=== PATIENT | male | born 1965 | race Caucasian/White ===

== ENCOUNTER 2020-03-29 08:18 | Emergency (ER) | payer OTHER ==
[2020-03-29 08:37] LABS: BASOPHIL 0.4 % (0-2); EOSINOPHIL 0.4 % (0-5); HCT 43.9 % (42.0-52.0); HGB 15.7 g/dl (13.2-18.0); LYMPHOCYTE 17.1 % (15-48); MCH 30.4 pg (25.0-31.0); MCHC 35.8 g/dL (32.0-36.0); MCV 84.9 fL (78.0-100.0); MONOCYTE 6.4 % (0-12); MPV 9.1 fL (6.0-9.5); NEUTROPHIL 75.3 % (41-80); NRBC 0; PLT 209 K/uL (150-400); RBC 5.17 M/uL (4.70-6.00); RDW 12.7 % (11.5-14.0); WBC 11.4 K/uL (4.0-10.5)
[2020-03-29 08:43] LABS: BILIRUBIN NEGATIVE (NEGATIVE); BLOOD 2+ Ery/uL (NEGATIVE); CLARITY CLEAR (CLEAR); COLOR YELLOW (YELLOW); GLUCOSE (U) NORMAL (NORMAL); LEUKOCYTES NEGATIVE Leu/uL (NEGATIVE); NITRITE NEGATIVE (NEGATIVE); PROTEIN NEGATIVE (NEGATIVE); UROBILINOGEN 0.2 mg/dL (0.2-1.0); pH 7.5 (5.0-9.0)
[2020-03-29 09:10] LABS: ALBUMIN 3.5 g/dL (3.4-5.0); BILIRUBIN - TOTAL 0.8 mg/dL (0.2-1.0); BUN/CREAT RATIO (CALC) 16.2 RATIO; CREATININE 1.11 mg/dL (0.67-1.17); GLOBULIN (CALCULATION) 3.1 g/dL; POTASSIUM 3.6 mmol/L (3.5-5.1); TOTAL PROTEIN 6.6 g/dL (6.4-8.2)
[2020-03-29 09:13] LABS: BACTERIA TRACE
[2020-03-29] MEDS ORDERED: NORCO 5-325 TA1 EACH PO ×2 (11:09→11:18)
[2020-03-29] MEDS ORDERED: FLOMAX 0.4 MG0.4 MG PO (11:09)
== END 2020-03-29 11:30 | disposition home or self-care (01) ==
LOC: FER 08:18
PROVIDERS: Emergency Medicine
DX: N13.0 Hydronephrosis with ureteropelvic junction obstruction (principal); I10 Essential (primary) hypertension; Z90.49 Acquired absence of other specified parts of digestive tract; Z79.899 Other long term (current) drug therapy
CPT/HCPCS: 36415; 80053; 81001; 83690; 85025; J1885

== ENCOUNTER 2020-12-21 05:20 | Day surgery (SDC) | payer OTHER ==
[~2020-12-21] VITALS: Ht 175 cm; Wt 135.0 kg
[~2020-12-21 05:20] MED LIST: ALLEGRA ALLERG180 MG PO; BENADRYL25 MG PO; FLEXERIL5 MG PO; FLOMAX 0.4 MG0.4 MG PO; LISINOPRIL-HCT1 EAC2 PO; MELOXICAM15 MG PO; NORCO 5-325 TA1 EACH PO; SUDAFED30 MG PO; SUMATRIPTAN SUC50 MG PO
[2020-12-21] MEDS ORDERED: VENTOLIN HFA IN18 GM INH (05:51)
--- NOTE | 2020-12-21 15:46 | NUR ---
PT YAEL MORALES AT [facility] NOTIFIED. WILL NEED [facility]PAT[facility] SET UP. HAVE NOT SPOKE TO PT YET WILL NEED TO SEE PT
[2020-12-21] MEDS ORDERED: FEOSOL325 MG PO (16:06)
[2020-12-21] MEDS ORDERED: ASPIRIN81 MG PO (16:06)
[2020-12-21] MEDS ORDERED: ULTRA-LIGHT RO1 EACH XX (16:07)
[2020-12-22 05:40] LABS: BASOPHIL 0.2 % (0-2); EOSINOPHIL 0 % (0-5); HCT 38.1 % (42.0-52.0); HGB 13.7 g/dl (13.2-18.0); LYMPHOCYTE 12.2 % (15-48); MCH 30.5 pg (25.0-31.0); MCV 84.9 fL (78.0-100.0); MONOCYTE 7.9 % (0-12); MPV 9.1 fL (6.0-9.5); NEUTROPHIL 79.2 % (41-80); NRBC 0; PLT 189 K/uL (150-400); RBC 4.49 M/uL (4.70-6.00); RDW 12.8 % (11.5-14.0); WBC 13.3 K/uL (4.0-10.5)
[2020-12-22 05:56] LABS: BUN/CREAT RATIO (CALC) 15.7 RATIO; CREATININE 1.15 mg/dL (0.67-1.17); POTASSIUM 4.1 mmol/L (3.5-5.1)
--- NOTE | 2020-12-22 17:29 | NUR ---
12/22/20 Umu Hansen scheduled an appointment at [facility] for 12/23/20.
== END 2020-12-22 10:30 | disposition home or self-care (01) ==
LOC: FAS 05:20 → FOFB 05:20 → FAS 10:30
PROVIDERS: Orthopaedic Surgery
DX: M17.0 Bilateral primary osteoarthritis of knee (principal); M21.162 Varus deformity, not elsewhere classified, left knee; M21.161 Varus deformity, not elsewhere classified, right knee; I10 Essential (primary) hypertension; E78.00 Pure hypercholesterolemia, unspecified; K21.9 Gastro-esophageal reflux disease without esophagitis; G47.30 Sleep apnea, unspecified; E66.9 Obesity, unspecified; Z68.41 Body mass index [BMI] 40.0-44.9, adult; Z87.891 Personal history of nicotine dependence; Z99.89 Dependence on other enabling machines and devices; Z79.899 Other long term (current) drug therapy
CPT/HCPCS: 36415; 73560; 80048; 85025; 86850; 86900; 86901; 94010; 97162; 97166; 97530-GP; 97535; C1713; C1776; J0171; J0697; J1100; J1170; J1885; J2250; J2270; J2405; J2704; J2795; J3010; J7120